=== PATIENT | female | born 1955 | race Two or more races ===

== ENCOUNTER 2025-01-02 05:50 | Day surgery (SDC) | payer OTHER ==
[~2025-01-02 05:50] MED LIST: ATORVASTATIN CA10 MG PO; CARVEDILOL12.5 MG; LEXAPRO5 MG PO; TRIJARDY XR 101 EACH PO
[2025-01-02] MEDS ORDERED: CIPROFLOXACIN IN 5 % DEXTROSE 400 MG/200 ML PIGGYBAG IV ONE (11:30)
[2025-01-02] MEDS ORDERED: GENTAMICIN SULFATE 40 MG/ML VIAL IR ONE (11:45)
[2025-01-02] MEDS ORDERED: MACROBID 100 M100 MG PO (13:02)
== END 2025-01-02 16:00 | disposition home or self-care (01) ==
LOC: CIR.AMB 05:50
PROVIDERS: ATTEND Obstetrics & Gynecology Gynecology
DX: T83.722A Exposure of implanted urethral mesh into urethra, initial encounter (principal); T83.721A Exposure of implanted vaginal mesh into vagina, initial encounter; Z88.0 Allergy status to penicillin; Z88.8 Allergy status to other drugs, medicaments and biological substances